=== PATIENT | female | born 1990 | race Caucasian/White ===

== ENCOUNTER 2017-12-29 12:22 | Emergency (ER) | payer MEDICAID ==
--- NOTE | 2017-12-29 13:15 | EDPHY ---
H & P Stated Complaint: hit top of head on trunk/feeling spacy/richard Time Seen by Provider: 12/29/17 13:15 HPI/ROS: CHIEF COMPLAINT: Headache following minor head trauma HISTORY OF PRESENT ILLNESS: Patient presents the ED with complaints of headache following a minor head injury. She struck her head on the trunk of the vehicle. There was no loss of consciousness. The patient sustained a small abrasion to the vertex of her scalp. She is not anticoagulated. She denies any associated neck pain, numbness or weakness. She denies any additional traumatic complaints. REVIEW OF SYSTEMS: A comprehensive 10 point review of systems is otherwise negative aside from elements mentioned in the history of present illness. Source: Patient - Personal History LMP (Females 10-55): Over 28 Days Ago Current Tetanus Diphtheria and Acellular Pertussis (TDAP): Yes Tetanus Vaccine Date: <10yrs - Medical/Surgical History Hx Asthma: No Hx Chronic Respiratory Disease: No Hx Diabetes: No Hx Cardiac Disease: No Hx Renal Disease: No Hx Cirrhosis: No Hx Alcoholism: No Hx HIV/AIDS: No Hx Splenectomy or Spleen Trauma: No Other PMH: denies - Social History Smoking Status: Never smoked - Physical Exam Exam: General Appearance: Alert, no distress Head: Superficial abrasion noted on vertex of scalp, no hematoma, no bony tenderness Eyes: Pupils equal, round, reactive ENT, Mouth: No hemotympanum, no oral trauma Neck: Nontender, trachea midline Respiratory: No chest wall tender, no subcutaneous air, lungs clear bilaterally Cardiovascular: Regular rate and rhythm Abdomen: Abdomen is soft and nontender, pelvis stable Skin: No lacerations, No abrasion Back: No midline T/L/S pain Extremities: Nontender, full range of motion Neurological: A&Ox3, normal motor function, normal sensory exam Constitutional: Initial Vital Signs Temperature (C) 36.8 C 12/29/17 12:30 Heart Rate 83 12/29/17 12:30 Respiratory Rate 18 12/29/17 12:30 Blood Pressure 119/72 12/29/17 12:30 O2 Sat (%) 95 12/29/17 12:30 O2 Delivery Mode Room Air Allergies/Adverse Reactions: No Known Allergies Allergy (Verified 12/29/17 12:30) Home Medications: Medication Instructions Recorded NK [No Known Home Meds] 12/29/17 Medical Decision Making ED Course/Re-evaluation: The patient presents to the ED with symptoms of a mild concussion following minor head injury. There is no evidence of skull fracture or hematoma clinically. Her GCS is 15. I do not feel she needs a CT scan for evaluation of ICH or skull fracture. The patient has been given customary concussion aftercare instructions. Plan will be for symptomatic management with Tylenol and ibuprofen. The patient will be discharged home with instructions to follow up for any worsening headache or development of new traumatic symptoms. Differential Diagnosis: Differential diagnosis considered includes intracranial hemorrhage, skull fracture, concussion Departure - Departure Disposition: Home, Routine, Self-Care Clinical Impression: Concussion Condition: Good Instructions: Concussion (ED) Additional Instructions: 1. Take Ibuprofen or Motrin 600 mg by mouth three times a day. 2. Concussion aftercare as directed 3. Please follow up with our concussion specialist Dr. Tavares for any ongoing symptoms of headache or confusion past 3-5 days. 4. You have been given the contact number of our on-call primary care provider Dr. Joshi if you wish to establish local primary care. Referrals: Cyn[place] [place] - As per Instructions Charo Tavares MD [Medical Doctor] - As per Instructions
[2017-12-29 14:00] VITALS: BP 122/80
== END 2017-12-29 14:00 | disposition home or self-care (01) ==
DX: S06.0X0A Concussion without loss of consciousness, initial encounter (principal); W22.8XXA Striking against or struck by other objects, initial encounter

== ENCOUNTER 2018-03-09 14:40 | Emergency (ER) | payer MEDICAID ==
--- NOTE | 2018-03-09 15:07 | EDPHY ---
H & P Stated Complaint: back pain Time Seen by Provider: 03/09/18 15:07 HPI/ROS: HPI: This is a 27-year-old female who presents with Chief Complaint: Back pain Location: Lumbar back Quality: Pain/injury Duration: 1 hr prior to arrival Signs and Symptoms: No bleeding, no radiation, no numbness, no weakness, no tingling, no incontinence, + decreased range of motion, no swelling, + pain, no fever Timing: Acute Severity: 11/25 Context: Patient arrives via EMS with complaints of lumbar back severe, constant, nonradiating midline pain. Patient reports that she [place] it to [place] when she coughed and then immediately felt a constant, sharp, nonradiating pain in the lumbar back. Patient reports that the pain was so severe that a brought her to her knees and she had to stay on the ground for a few minutes to"regain my composure." She then was able to roll up on her knees and then slowly get up onto her feet. She was unable to walk down the mountain and rescue had to be called. Denies change in bowel or bladder habits, radiation. She reports that when she was younger she had a snowboarding injury that had lumbar strain but nothing "this series." Modifying Factors: IV fentanyl given by EMS brought pain down from 11/25 to Comment: ROS: A comprehensive 10 system review of systems is otherwise negative aside from elements mentioned in the history of present illness. MEDICAL/SURGICAL/SOCIAL HISTORY: Medical history: Generally healthy. Does not take any regular medications. Surgical history: Denies Social history: Never smoked. Has a child. CONSTITUTIONAL: Moderate distress, adult white female, lying on right side, awake and alert HEENT: Atraumatic and normocephalic. NECK: supple, no midline tenderness, flexion 45 degrees, extension 45 degrees, right and left lateral flexion 45 degrees. Cardiovascular: Normal S1/S2, regular rate, regular rhythm, without murmur rub or gallop. PULMONARY/CHEST: Symmetrical and nontender. Clear to auscultation bilaterally. Good air movement. No accessory muscle usage. ABDOMEN: Soft, nondistended, nontender. PELVIC: Moderate pain with rocking; bilateral hips flexion 125 degrees, extension 30 degrees, mild pain internal rotation and mild pain external rotation radiating to the lower lumbar back. BACK: Reproducible lumbar midline tenderness, no paraspinous spasm, deep tendon reflexes 2/2, moderate pain with straight leg raise, No foot drop. Achilles reflexes are equal bilaterally. Unable to transfer in bed or pull self up secondary to pain. EXTREMITIES: 2/2 pulses, strength 5/5, DIP/PIP/MCP flexion/extension intact with good light touch sensation. no deformities, no clubbing, no cyanosis or edema. NEUROLOGICAL: no focal neuro deficits. GCS 15. Light touch sensation intact. SKIN: Warm and dry, no erythema. no rash. Good capillary refill. Source: Patient Exam Limitations: No limitations - Personal History LMP (Females 10-55): Unknown Current Tetanus Diphtheria and Acellular Pertussis (TDAP): Unsure Tetanus Vaccine Date: <10yrs - Medical/Surgical History Hx Asthma: No Hx Chronic Respiratory Disease: No Hx Diabetes: No Hx Cardiac Disease: No Hx Renal Disease: No Hx Cirrhosis: No Hx Alcoholism: No Hx HIV/AIDS: No Hx Splenectomy or Spleen Trauma: No Other PMH: denies - Social History Smoking Status: Never smoked Constitutional: Initial Vital Signs Temperature (C) 37.3 C 03/09/18 14:52 Heart Rate 93 03/09/18 14:52 Respiratory Rate 16 03/09/18 14:52 Blood Pressure 113/69 03/09/18 14:52 O2 Sat (%) 94 03/09/18 14:52 O2 Delivery Mode Room Air Allergies/Adverse Reactions: No Known Allergies Allergy (Verified 12/29/17 12:30) Home Medications: Medication Instructions Recorded Diazepam [Valium 5 MG (*)] 5 mg PO Q8 PRN #12 tab 03/09/18 methylPREDNISolone [Medrol Dose 1 each PO AD #1 ea 03/09/18 Miguel Angel] oxyCODONE/APAP 5/325 [Percocet 1 - 2 tab PO Q4H PRN #20 tab 03/09/18 5/325 (*)] Medical Decision Making ED Course/Re-evaluation: Vital signs reviewed and stable upon arrival. Due to patient having severe midline back pain MRI lumbar spine ordered IV access obtained and patient given IV Valium 5 mg, IV Toradol 15 mg, IV Decadron 8 mg 1650: Called by radiologist who advised that MRI lumbar spine shows small ligamentous disc protrusion at L4-L5 with minimal canal narrowing and no cord compression. 1655: Patient given walker and performed road test approximately 100 ft and reports that she cannot continue to the bathroom due to pain. 1730: Offered patient admission and she politely declined. Patient prefers to go home with pain control. Requesting prescription for a walker. Given a prescription for Medrol Dosepak, Percocet, Valium and walker per request with Neurosurgery follow-up as needed. No signs of neurovascular compromise/tenting of skin/compartment syndrome/ extremities and joints examined above and below area of concern and are neurovascularly intact/cauda equina syndrome. This patient was seen under the supervision of my secondary supervising physician. I evaluated care for this patient with attending. Discussed this patient with Dr. Bynum who did not see the patient. Differential Diagnosis: Back pain including but not limited to muscular pain, herniated disc, spine fracture, intra-abdominal causes and urinary tract infection. - Data Points Medications Given: Discontinued Medications Dexamethasone (Decadron Injection) 8 mg IVP EDNOW ONE Stop: 03/09/18 15:16 Last Admin: 03/09/18 15:30 Dose: 8 mg Diazepam (Valium) 5 mg IVP EDNOW ONE Stop: 03/09/18 15:16 Last Admin: 03/09/18 15:30 Dose: 5 mg Ketorolac Tromethamine (Toradol) 15 mg IVP EDNOW ONE Stop: 03/09/18 15:16 Last Admin: 03/09/18 15:30 Dose: 15 mg Oxycodone HCl (Oxycodone Ir) 10 mg PO EDNOW ONE Stop: 03/09/18 17:22 Last Admin: 03/09/18 17:24 Dose: 10 mg Departure - Departure Disposition: Home, Routine, Self-Care Clinical Impression: L4-L5 disc bulge Lumbar strain Qualifiers: Encounter type: initial encounter Qualified Code(s): S39.012A - Strain of muscle, fascia and tendon of lower back, initial encounter Condition: Good Instructions: Oxycodone/Acetaminophen (By mouth), Lumbar Disc Herniation (ED), Low Back Strain (ED) Additional Instructions: Take all medications as directed. Use walker to aid ambulation. Follow-up with Neurosurgery as needed. Referrals: Obdulia Alvarez MD [Medical Doctor] - As per Instructions Prescriptions: Diazepam [Valium 5 MG (*)] 5 mg PO Q8 PRN #12 tab PRN Reason: Spasms methylPREDNISolone [Medrol Dose Miguel Angel] 1 each PO AD #1 ea oxyCODONE/APAP 5/325 [Percocet 5/325 (*)] 1 - 2 tab PO Q4H PRN #20 tab PRN Reason: Pain, Severe
[2018-03-09] MEDS ORDERED: DEXAMETHASONE 4 MG/ML VIAL IVP ONE (15:15)
[2018-03-09] MEDS ORDERED: KETOROLAC 15 MG/1 ML SDV IVP ONE (15:15)
[2018-03-09] MEDS ORDERED: DIAZEPAM 5 MG/ML 1 ML SYR IVP ONE (15:15)
[2018-03-09] MEDS ORDERED: oxyCODONE IR 5 MG TAB PO ONE (17:21)
[2018-03-09 19:01] VITALS: BP 131/79
== END 2018-03-09 19:03 | disposition home or self-care (01) ==
LOC: EDUNIT#
DX: M51.86 Other intervertebral disc disorders, lumbar region (principal)
CPT/HCPCS: 96374; J1100; J1885; J3360